=== PATIENT | male | born 1970 | race Native Hawaiian/Other Pacific Islander ===

== ENCOUNTER 2017-03-03 21:22 | Inpatient (IN) | payer SELFPAY ==
[2017-03-03 22:49] LABS: Basophils % (Auto) 0.2 % (0.0-1.8); Eosinophils % (Auto) 1.2 % (0.0-4.3); Hematocrit 46.3 % (35.5-45.6); Hemoglobin 16.3 gm/dl (11.8-15.2); Mean Corpuscular HGB Conc 35 % (32-34); Mean Corpuscular Hemoglobin 30 pg (28-32); Mean Corpuscular Volume 87 fl (84-94); Platelet Count 147 K/mm3 (140-440); Red Blood Count 5.35 M/mm3 (3.65-5.03); Red Cell Distribution Width 13.7 % (13.2-15.2); White Blood Count 7.2 K/mm3 (4.5-11.0)
[2017-03-03 23:08] LABS: Anion Gap 28 mmol/L; Blood Urea Nitrogen 32 mg/dL (9-20); Calcium 9.5 mg/dL (8.4-10.2); Carbon Dioxide 26 mmol/L (22-30); Chloride 79.1 mmol/L (98-107); Glucose 173 mg/dL (75-100); Potassium 3.2 mmol/L (3.6-5.0); Sodium 130 mmol/L (137-145)
[2017-03-04] MEDS ORDERED: DIFLUCAN PO ONE ×2 (02:39)
[2017-03-04] MEDS ORDERED: POTASSIUM CHLORIDE PO ONE (02:40)
[2017-03-04] MEDS ORDERED: VITAMIN B-1 100 MG, FOLVITE 1 MG, INFUVITE 10 ML in NACL 0.9% 1000 ML 1,000 ML IV ONE (02:41)
[2017-03-04] MEDS ORDERED: BENADRYL IV ONE (02:41)
[2017-03-04] MEDS ORDERED: REGLAN IV ONE (02:41)
[2017-03-04 03:09] LABS: Albumin 5.2 g/dL (3.9-5); Albumin/Globulin Ratio 1.2 %; Bilirubin,Direct 0.2 mg/dL (0-0.2); Bilirubin,Indirect 0.8 mg/dL; Magnesium 2.9 mg/dL (1.7-2.3); Total Protein 9.4 g/dL (6.3-8.2)
--- NOTE | 2017-03-04 03:16 | Emergency Department Report ---
ED N/V/D HPI - General Chief complaint: Chest Pain Stated complaint: MOUTH/TONGUE SORE/CANT EAT Time Seen by Provider: 03/04/17 02:25 Source: patient Mode of arrival: Ambulatory Limitations: No Limitations - History of Present Illness Initial comments: 47-year-old male with past medical history not insulin. Diabetes (noncompliant with meds), and daily alcohol/beer use presents to the hospital complaints of pain with swallowing and generalized weakness 1 month. Patient has noticed thrush. After any by mouth intake patient has vomiting and pain with swallowing. Last alcohol intake was 2 beers yesterday. No history of alcohol withdrawal tremors in the past. Patient has generalized intermittent muscle cramps and spasms. Denies isolated and localized abdominal pain. Cramping pain is rated 8/10 in intensity when it occurs. No aggravating or alleviating factors reported. 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 ENT: as per hpi Neck: Denies pain Respiratory: Denies cough wheezing shortness of breath Cardiovascular: Denies chest pain GI: Denies nausea, vomiting : Denies dysuria Musculoskeletal: Denies back pain, joint swelling Skin: Denies rash, lesions, erythema Neurologic: Denies headache, numbness, weakness Psychiatric: Denies suicidal ideation, hallucinations ED Past Medical Hx - Past Medical History Hx Diabetes: Yes - Surgical History Additional Surgical History: unknown - Social History Smoking Status: Current Every Day Smoker Substance Use Type: Alcohol - Medications Home Medications: Home Medications Medication Instructions Recorded Confirmed Last Taken Type No Known Home Medications [No 03/04/17 03/04/17 Unknown History Reported Home Medications] ED Physical Exam - General Limitations: No Limitations - Other Other exam information: General: No limitations, patient is alert in no acute distress Head exam: Atraumatic, normocephalic Eyes exam: Normal appearance ENT: Positive thrush and thrush noted to posterior pharynx Neck exam: Normal inspection, full range of motion, no meningismus nontender Respiratory exam: Clear to auscultation bilateral, no wheezes, rales, crackles Cardiovascular: Normal rate and rhythm, normal heart sounds Abdomen: Soft, nondistended, and nontender, with normal bowel sounds, no rebound, or guarding Extremity: Full range of motion normal inspection no deformity Back: Normal Inspection, full range of motion, no tenderness Neurologic: Alert, oriented x3, cranial nerves intact, no motor or sensory deficit Psychiatric: normal affect, normal mood Skin: Warm, dry, intact ED Course Vital Signs 03/03/17 03/04/17 03/04/17 21:37 02:49 03:03 Temperature 98.4 F Pulse Rate 100 H 81 Respiratory 16 13 16 Rate Blood Pressure 141/90 124/87 O2 Sat by Pulse 96 97 99 Oximetry - Reevaluation(s) Reevaluation #1: 03/04/17 03:56 Banana bag, Diflucan, and by mouth potassium ordered ED Medical Decision Making - Lab Data Result diagrams: 03/03/17 22:08 03/03/17 22:08 Lab Results 03/03/17 03/03/17 03/03/17 Range/Units 22:08 22:08 22:08 WBC 7.2 (4.5-11.0) K/mm3 RBC 5.35 H (3.65-5.03) M/mm3 Hgb 16.3 H (11.8-15.2) gm/dl Hct 46.3 H (35.5-45.6) % MCV 87 (84-94) fl MCH 30 (28-32) pg MCHC 35 H (32-34) % RDW 13.7 (13.2-15.2) % Plt Count 147 (140-440) K/mm3 Lymph % (Auto) 18.6 (13.4-35.0) % [place] % (Auto) 8.8 H (0.0-7.3) % Eos % (Auto) 1.2 (0.0-4.3) % Baso % (Auto) 0.2 (0.0-1.8) % Lymph # 1.3 (1.2-5.4) K/mm3 [place] # 0.6 (0.0-0.8) K/mm3 Eos # 0.1 (0.0-0.4) K/mm3 Baso # 0.0 (0.0-0.1) K/mm3 Seg Neutrophils % 71.2 H (40.0-70.0) % Seg Neutrophils # 5.1 (1.8-7.7) K/mm3 Sodium 130 L (137-145) mmol/L Potassium 3.2 L (3.6-5.0) mmol/L Chloride 79.1 L (98-107) mmol/L Carbon Dioxide 26 (22-30) mmol/L Anion Gap 28 mmol/L BUN 32 H (9-20) mg/dL Creatinine 2.6 H (0.8-1.5) mg/dL Estimated GFR 26 ml/min BUN/Creatinine Ratio 12.30 % Glucose 173 H (75-100) mg/dL Lactic Acid 1.20 (0.7-2.0) mmol/L Calcium 9.5 (8.4-10.2) mg/dL Magnesium (1.7-2.3) mg/dL Total Bilirubin (0.1-1.2) mg/dL Direct Bilirubin (0-0.2) mg/dL Indirect Bilirubin mg/dL AST (5-40) units/L ALT (7-56) units/L Alkaline Phosphatase (35-129) units/L Troponin T < 0.010 (0.00-0.029) ng/mL Total Protein (6.3-8.2) g/dL Albumin (3.9-5) g/dL Albumin/Globulin Ratio % Blood Type Antibody Screen DEL Antibody Screen 03/03/17 03/04/17 03/04/17 Range/Units 22:25 00:53 00:53 WBC (4.5-11.0) K/mm3 RBC (3.65-5.03) M/mm3 Hgb (11.8-15.2) gm/dl Hct (35.5-45.6) % MCV (84-94) fl MCH (28-32) pg MCHC (32-34) % RDW (13.2-15.2) % Plt Count (140-440) K/mm3 Lymph % (Auto) (13.4-35.0) % [place] % (Auto) (0.0-7.3) % Eos % (Auto) (0.0-4.3) % Baso % (Auto) (0.0-1.8) % Lymph # (1.2-5.4) K/mm3 [place] # (0.0-0.8) K/mm3 Eos # (0.0-0.4) K/mm3 Baso # (0.0-0.1) K/mm3 Seg Neutrophils % (40.0-70.0) % Seg Neutrophils # (1.8-7.7) K/mm3 Sodium (137-145) mmol/L Potassium (3.6-5.0) mmol/L Chloride (98-107) mmol/L Carbon Dioxide (22-30) mmol/L Anion Gap mmol/L BUN (9-20) mg/dL Creatinine (0.8-1.5) mg/dL Estimated GFR ml/min BUN/Creatinine Ratio % Glucose (75-100) mg/dL Lactic Acid (0.7-2.0) mmol/L Calcium (8.4-10.2) mg/dL Magnesium 2.90 H (1.7-2.3) mg/dL Total Bilirubin 1.00 (0.1-1.2) mg/dL Direct Bilirubin 0.2 (0-0.2) mg/dL Indirect Bilirubin 0.8 mg/dL AST 41 H (5-40) units/L ALT 38 (7-56) units/L Alkaline Phosphatase 124 (35-129) units/L Troponin T < 0.010 (0.00-0.029) ng/mL Total Protein 9.4 H (6.3-8.2) g/dL Albumin 5.2 H (3.9-5) g/dL Albumin/Globulin Ratio 1.2 % Blood Type A POSITIVE Antibody Screen TNR DEL Antibody Screen Negative - Medical Decision Making Patient need admission to the hospital for hydration, renal consultation, possible EGD to diagnose Liseth esphagitits - Differential Diagnosis esophageal candidiasis, dehydration, electrolyte abnormalities Critical Care Time: No Critical care attestation.: If time is entered above; I have spent that time in minutes in the direct care of this critically ill patient, excluding procedure time. ED Disposition Clinical Impression: Thrush, Odynophagia, Vomiting, Renal insufficiency, Hypokalemia, Hyponatremia Disposition: OP ADMIT IP TO THIS HOSP Is pt being admited?: Yes Condition: Stable Time of Disposition: 03:16 (DR Goetz/hosp)
[2017-03-04] MEDS ORDERED: DULCOLAX PR PRN (04:29)
[2017-03-04] MEDS ORDERED: MILK OF MAGNESIA PO PRN (04:29)
[2017-03-04] MEDS ORDERED: PROTONIX IV SCH (04:29)
[2017-03-04] MEDS ORDERED: TYLENOL PO PRN (04:29)
[2017-03-04] MEDS ORDERED: ZOFRAN IV PRN (04:29)
--- NOTE | 2017-03-04 04:33 | History and Physical Report ---
History of Present Illness Date of examination: 03/04/17 History of present illness: 47-year-old man with a history of alcohol abuse, diabetes, hypertension comes emergency room with complaining nausea vomiting 6 days, unable to eat, vomited coffee-ground emesis. He's been having coffee-ground emesis intermittently over the last 6 months. Also complaining of difficulty swallowing 6 days History is per the , patient is very sleepy, status post Benadryl Review of system is unobtainable Past medical history:alcohol abuse, diabetes, hypertension, right eye blind since PAST SURGICAL HISTORY: None SOCIAL HISTORY: Heavy alcohol use, smokes a pack a day FAMILY HISTORY: Hypertension Medications and Allergies Allergies Allergy/AdvReac Type Severity Reaction Status Date / Time Sulfa (Sulfonamide Allergy Rash Verified 03/04/17 02:45 Antibiotics) Home Medications Medication Instructions Recorded Confirmed Last Taken Type No Known Home Medications [No 03/04/17 03/04/17 Unknown History Reported Home Medications] Active Meds: Active Medications Thiamine HCl 100 mg/ Folic Acid 1 mg/ Multivitamins/Minerals 10 ml/ Sodium Chloride 1,011.2 mls @ 250 mls/hr IV ONCE.ED ONE Stop: 03/04/17 06:43 Last Admin: 03/04/17 03:23 Dose: 250 mls/hr Exam - Physical Exam Narrative exam: Gen. appearance: Patient lying in bed, no apparent distress HEENT: Normocephalic, atraumatic, right eye blind, left pupil equally round and reactive to light, extraocular movement intact, and no sclericterus,. No JVD or thyromegaly or nodule,neck supple, no carotid bruit ,mucous membranes moist, white exudate on tongue Heart: S1, S2, regular rate and rhythm Lungs: Clear to auscultation bilaterally, breathing comfortable Abdomen: Positive bowel sounds, nontender, nondistended, no organomegaly Extremity: No edema, cyanosis, clubbing Skin: No rash, nodules, warm, dry Neuro: difficult to assess, sleepy - Constitutional Vitals: Temp Pulse Resp BP Pulse Ox 98.4 F 77 16 119/78 99 03/03/17 21:37 03/04/17 03:00 03/04/17 03:03 03/04/17 03:00 03/04/17 03:03 Results - Labs CBC & Chem 7: 03/05/17 04:58 03/05/17 04:58 Labs: Abnormal lab results 03/03/17 03/03/17 03/04/17 Range/Units 22:08 22:08 00:53 RBC 5.35 H (3.65-5.03) M/mm3 Hgb 16.3 H (11.8-15.2) gm/dl Hct 46.3 H (35.5-45.6) % MCHC 35 H (32-34) % [place] % (Auto) 8.8 H (0.0-7.3) % Seg Neutrophils % 71.2 H (40.0-70.0) % Sodium 130 L (137-145) mmol/L Potassium 3.2 L (3.6-5.0) mmol/L Chloride 79.1 L (98-107) mmol/L BUN 32 H (9-20) mg/dL Creatinine 2.6 H (0.8-1.5) mg/dL Glucose 173 H (75-100) mg/dL Magnesium 2.90 H (1.7-2.3) mg/dL AST 41 H (5-40) units/L Total Protein 9.4 H (6.3-8.2) g/dL Albumin 5.2 H (3.9-5) g/dL Assessment and Plan Assessment GI bleed/coffee-ground emesis Acute renal failure Oral candidiasis Hypertension Diabetes2 Alcohol abuse Plan Start IV fluid, protonix, consult GI, monitor hemoglobin Obtain ultrasound of the kidneys start IV fluconazole, will need hiv test when he's more awake Fingersticks initiate insulin sliding scale Start CIWA protocol with IV Ativan Start DVT prophylaxis with SCD
[2017-03-04] MEDS ORDERED: ATIVAN IV PRN ×2 (04:38)
--- NOTE | 2017-03-04 05:58 | Ultrasound Report ---
FINAL REPORT PROCEDURE: US RENAL BILAT TECHNIQUE: Real-time sonography in multiple planes of the kidneys, ureters and urinary bladder was performed with image documentation. CPT 64521 HISTORY: arf COMPARISON: No prior studies are available for comparison. FINDINGS: RIGHT kidney: Normal echotexture. No focal renal mass, calculus, or hydronephrosis. Length: 11.1 cm. LEFT kidney: No hydronephrosis. The inferior pole is not well visualized on this study.. Length: 11cm. Bladder: Normal. IMPRESSION: There is no evidence of hydronephrosis. No renal masses..
[2017-03-04] MEDS: NACL 0.9% 1000 ML 1,000 ML IV SCH ×3 (07:52→21:53)
--- NOTE | 2017-03-04 09:20 | Gastroenterology Consultation ---
History of Present Illness - Reason for Consult Consult date: 03/04/17 Coffee Ground Emesis Requesting physician: KINGS AMOS - History of Present Illness The patient is a 47 yo male admitted with N/V/coffee ground emesis. His current hct is 46, but he is clinically quite dehydrated. He has a known hx of polysubstance abuse (EtOH, cocaine, smoking) and was binge drinking as recently as 1 day [employer]. He was admitted for similar sx about 3 weeks ago, but no endoscopy was done. Today, he ate a soft breakfast, and had nausea, but no vomiting. He has not had melena. He does take motrin almost every day, and occasional TUMS. He has no hx of PUD, and there is no family hx of PUD or GI cancer. He has never had upper or lower endoscopy. He denies prior abdominal surgery or cardiopulmonary disease. In the ER, he was complaining about recent onset of dysphagia, but today he swallowed his entire meal without problem (but it was soft - eggs/grits). Past History Past Medical History: other (substance abuse, blind R eye) Past Surgical History: Other (R eye) Social history: smoking, alcohol abuse, other (cocaine) Family history: no significant family history. denies: cancer Medications and Allergies Allergies Allergy/AdvReac Type Severity Reaction Status Date / Time Sulfa (Sulfonamide Allergy Rash Verified 03/04/17 02:45 Antibiotics) Home Medications Medication Instructions Recorded Confirmed Last Taken Type No Known Home Medications [No 03/04/17 03/04/17 Unknown History Reported Home Medications] Active Meds: Active Medications Acetaminophen (Tylenol) 650 mg PO Q4H PRN PRN Reason: Pain MILD(1-3)/Fever >100.5/RODRIGUEZ Bisacodyl (Dulcolax) 10 mg NH QDAY PRN PRN Reason: Constipation unrelieved by MOM Fluconazole (Diflucan/Ns 100 Mg/50 Ml) 100 mg in 50 mls @ 50 mls/hr IV Q24HR HANSEL Sodium Chloride (Nacl 0.9% 1000 Ml) 1,000 mls @ 150 mls/hr IV DIRECT HANSEL Last Admin: 03/04/17 07:52 Dose: 150 mls/hr Lorazepam (Ativan) 2 mg IV Q1HR PRN PRN Reason: CIWA-Ar 8-15 Lorazepam (Ativan) 4 mg IV Q1HR PRN PRN Reason: CIWA-Ar 16-25 Magnesium Hydroxide (Milk Of Magnesia) 30 ml PO Q4H PRN PRN Reason: Constipation Ondansetron HCl (Zofran) 4 mg IV Q8H PRN PRN Reason: N/V unrelieved by Reglan Pantoprazole Sodium (Protonix) 40 mg IV DAILY HANSEL Last Admin: 03/04/17 05:18 Dose: 40 mg Review of Systems - Review of Systems All systems: negative (as noted in the HPI) Exam - Constitutional Vital Signs: Temp Pulse Resp BP Pulse Ox 98.5 F 85 20 107/74 97 03/04/17 07:50 03/04/17 08:26 03/04/17 07:50 03/04/17 07:50 03/04/17 07:50 General appearance: no acute distress - EENT Eyes: other (Blind R eye) ENT: hearing intact, poor dentition, no thrush - Neck Neck: supple, normal ROM - Respiratory Respiratory effort: normal Respiratory: bilateral: CTA - Cardiovascular Rhythm: regular Heart Sounds: Present: S1 & S2 Extremities: no ischemia, No edema - Gastrointestinal General gastrointestinal: Present: soft, non-tender, non-distended - Integumentary Integumentary: Present: clear, warm, dry - Neurologic Neurological: alert and oriented x3 - Psychiatric Psychiatric: appropriate mood/affect - Labs CBC & Chem 7: 03/03/17 22:08 03/03/17 22:08 Lab Results: Laboratory Results - last 24 hr 03/04/17 03/04/17 07:55 Unknown POC Glucose 147 H Troponin T < 0.010 Assessment and Plan - Patient Problems (1) Hematemesis Current Visit: Yes Status: Acute Qualifiers: Nausea presence: N Plan to address problem: - Likely related to esophagitis from N/V from binge drinking, but will get endoscopy to further evaluate. - Continue current protonix therapy but PO not IV. - Monitor for EtOH withdrawal. - Patient ate today, so will plan EGD tomorrow. (2) Dysphagia Current Visit: Yes Status: Acute Qualifiers: Dysphagia type: D (3) Polysubstance abuse Current Visit: Yes Status: Acute (4) DEVANG (acute kidney injury) Current Visit: Yes Status: Acute
--- NOTE | 2017-03-04 13:04 | Progress Note ---
Assessment and Plan Assessment and plan: Patient is a 47-year-old man who speaks [place]ic with a history of right eye enucleation since , alcohol abuse, tobacco dependency, cocaine abuse, type 2 diabetes mellitus and hypertension who presents with nausea and vomiting coffee-ground emesis. Hemoglobin was 16.3. Creatinine was 2.6, last creatinine 02/12/2017 was 0.6. He does take Motrin daily. He's also has been drinking been drinking alcohol. Last alcoholic drink was at 1 day prior to arrival. -ARF, atn/mutlfactorial, poa: renal u/s reviewed, consult nephro, ivf nss at 150ml/hr going. -Intractable n/v: zofran iv -UGIB: egd, stop motrin and treat with ppi, GI is following -Dvt prophylaxis: scd only due to gib -ETOH abuse: [facility] protocol -Tobacco: counseling done. -hypokalemia: replace and recheck am History Interval history: Patient seen and examined. Follow up on current diagnosis/nausea vomiting. Overnight uneventful. No cp, sob, or severe headaches. Imaging, old records, testing, labs, nursing notes reviewed. He tolerated breakfast without vomiting but he does have nausea and epigastric abdominal pain. at bedside Hospitalist Physical - Physical exam Narrative exam: GEN: WDWN, NAD, AWAKE, ALERT, ORIENTATED x 3 HEENT: NCAT, right eye enucleation, EOMI, OP whtish plaque on tongue NECK: SUPPLE, NO THYROMEGALY, NO JVD, NO LAD CVS: RRR, NORMAL S1S2 LUNGS/CHEST: CTA B, NORMAL CHEST EXPANSION B, GOOD AIR ENTRY B ABD: SOFT, epigastric tenderness without distention GBS, NO REBOUND OR GUARDING EXT/SKIN: NO SIGNIFICANT EDEMA OR RASH MSK: FROM X 4 EXTREMITIES NEURO: CN 2-12 GROSSLY INTACT, NO FOCAL DEFICITS PSY: CALM - Constitutional Vitals: Temp Pulse Resp BP Pulse Ox 98.5 F 85 20 107/74 98 03/04/17 07:50 03/04/17 08:26 03/04/17 07:50 03/04/17 07:50 03/04/17 09:00 Results - Labs CBC & Chem 7: 03/03/17 22:08 03/03/17 22:08 Labs: Laboratory Last Values WBC 7.2 K/mm3 (4.5-11.0) 03/03/17 22:08 RBC 5.35 M/mm3 (3.65-5.03) H 03/03/17 22:08 Hgb 16.3 gm/dl (11.8-15.2) H 03/03/17 22:08 Hct 46.3 % (35.5-45.6) H 03/03/17 22:08 MCV 87 fl (84-94) 03/03/17 22:08 MCH 30 pg (28-32) 03/03/17 22:08 MCHC 35 % (32-34) H 03/03/17 22:08 RDW 13.7 % (13.2-15.2) 03/03/17 22:08 Plt Count 147 K/mm3 (140-440) 03/03/17 22:08 Lymph % (Auto) 18.6 % (13.4-35.0) 03/03/17 22:08 [place] % (Auto) 8.8 % (0.0-7.3) H 03/03/17 22:08 Eos % (Auto) 1.2 % (0.0-4.3) 03/03/17 22:08 Baso % (Auto) 0.2 % (0.0-1.8) 03/03/17 22:08 Lymph # 1.3 K/mm3 (1.2-5.4) 03/03/17 22:08 [place] # 0.6 K/mm3 (0.0-0.8) 03/03/17 22:08 Eos # 0.1 K/mm3 (0.0-0.4) 03/03/17 22:08 Baso # 0.0 K/mm3 (0.0-0.1) 03/03/17 22:08 Seg Neutrophils % 71.2 % (40.0-70.0) H 03/03/17 22:08 Seg Neutrophils # 5.1 K/mm3 (1.8-7.7) 03/03/17 22:08 Sodium 130 mmol/L (137-145) L 03/03/17 22:08 Potassium 3.2 mmol/L (3.6-5.0) L 03/03/17 22:08 Chloride 79.1 mmol/L (98-107) L 03/03/17 22:08 Carbon Dioxide 26 mmol/L (22-30) 03/03/17 22:08 Anion Gap 28 mmol/L 03/03/17 22:08 BUN 32 mg/dL (9-20) H 03/03/17 22:08 Creatinine 2.6 mg/dL (0.8-1.5) H 03/03/17 22:08 Estimated GFR 26 ml/min 03/03/17 22:08 BUN/Creatinine Ratio 12.30 % 03/03/17 22:08 Glucose 173 mg/dL (75-100) H 03/03/17 22:08 POC Glucose 177 (70-105) H 03/04/17 12:13 Lactic Acid 1.20 mmol/L (0.7-2.0) 03/03/17 22:08 Calcium 9.5 mg/dL (8.4-10.2) 03/03/17 22:08 Magnesium 2.90 mg/dL (1.7-2.3) H 03/04/17 00:53 Total Bilirubin 1.00 mg/dL (0.1-1.2) 03/04/17 00:53 Direct Bilirubin 0.2 mg/dL (0-0.2) 03/04/17 00:53 Indirect Bilirubin 0.8 mg/dL 03/04/17 00:53 AST 41 units/L (5-40) H 03/04/17 00:53 ALT 38 units/L (7-56) 03/04/17 00:53 Alkaline Phosphatase 124 units/L (35-129) 03/04/17 00:53 Troponin T < 0.010 ng/mL (0.00-0.029) 03/04/17 Unknown Total Protein 9.4 g/dL (6.3-8.2) H 03/04/17 00:53 Albumin 5.2 g/dL (3.9-5) H 03/04/17 00:53 Albumin/Globulin Ratio 1.2 % 03/04/17 00:53 Blood Type A POSITIVE 03/03/17 22:25 Antibody Screen TNR 03/03/17 22:25 DEL Antibody Screen Negative 03/03/17 22:25
[2017-03-04] MEDS: PROTONIX PO SCH (14:05)
[2017-03-04] MEDS: THERAGRAN-M Tab PO SCH (14:05)
--- NOTE | 2017-03-04 15:57 | Consultation ---
History of Present Illness - Reason for Consult Consult date: 03/04/17 acute renal failure Requesting physician: BARON MARTIN - History of Present Illness This is a 47 year old male with PMH of diabetes mellitus type 2 non-insulin dependent, blind in right eye, alcohol abuse, polysubstance abuse, and hypertension who presented to [facility] yesterday with complaints of nausea, vomiting coffee ground emesis, generalized muscle aches throughout his entire body, muscle cramps, and decreased urination. Patient reports worsening vomiting for the past 6 days along with decreased oral intake. Patient reports decreased urination and some days he would urinate small amount. Patient reports occasional dysuria, states sometimes urine is dark yellow, family at bedside states sometimes his urine looks like he has blood in it. Patient states his last drink of beer was 2 days ago, 1 day prior to admission. Gastroenterology consulted, planning on EGD tomorrow. We were consulted to evaluate this patient who has acute renal failure and nephrology consultation requested. Patient denies any history of known kidney problems. Patient states he takes motrin at least once a day, sometimes twice a day. Patient reports over 16 year history of uncontrolled diabetes mellitus type 2 and hypertension. Patient denies taking any medications for diabetes mellitus and hypertension. Review of labs from February of 2016, SCr level was 0.6. Past History Past Medical History: diabetes, hypertension, other (substance abuse, blind R eye) Past Surgical History: Other (R eye) Social history: smoking, alcohol abuse, other (cocaine) Family history: no significant family history. denies: cancer Medications and Allergies Allergies Allergy/AdvReac Type Severity Reaction Status Date / Time Sulfa (Sulfonamide Allergy Rash Verified 03/04/17 02:45 Antibiotics) Home Medications Medication Instructions Recorded Confirmed Last Taken Type No Known Home Medications [No 03/04/17 03/04/17 Unknown History Reported Home Medications] Active Meds: Active Medications Acetaminophen (Tylenol) 650 mg PO Q4H PRN PRN Reason: Pain MILD(1-3)/Fever >100.5/RODRIGUEZ Bisacodyl (Dulcolax) 10 mg MN QDAY PRN PRN Reason: Constipation unrelieved by MOM Fluconazole (Diflucan/Ns 100 Mg/50 Ml) 100 mg in 50 mls @ 50 mls/hr IV Q24HR HANSEL Sodium Chloride (Nacl 0.9% 1000 Ml) 1,000 mls @ 150 mls/hr IV DIRECT [facility] Last Admin: 03/04/17 14:04 Dose: 150 mls/hr Lorazepam (Ativan) 2 mg IV Q1HR PRN PRN Reason: CIWA-Ar 8-15 Lorazepam (Ativan) 4 mg IV Q1HR PRN PRN Reason: CIWA-Ar 16-25 Magnesium Hydroxide (Milk Of Magnesia) 30 ml PO Q4H PRN PRN Reason: Constipation Multivitamins/Minerals (Theragran-M Tab) 1 each PO QDAY [facility] Last Admin: 03/04/17 14:05 Dose: 1 each Ondansetron HCl (Zofran) 4 mg IV Q8H PRN PRN Reason: N/V unrelieved by Reglan Pantoprazole Sodium (Protonix) 40 mg PO QDAY [facility] Last Admin: 03/04/17 14:05 Dose: 40 mg Review of Systems Constitutional: fatigue, weakness, poor appetite, no fever Ears, nose, mouth and throat: sore throat, headache, no epistaxis Cardiovascular: high blood pressure, no chest pain, no shortness of breath, no dyspnea on exertion, no leg edema Respiratory: no shortness of breath, no dyspnea on exertion Gastrointestinal: nausea, vomiting, hematemesis, coffee ground emesis, no abdominal pain, no diarrhea, no constipation Genitourinary Male: dysuria, other (decreased urination), no hematuria Musculoskeletal: muscle weakness, muscle cramps, myalgias Integumentary: no rash, no wounds, no foot/leg ulcers Neurological: headaches, no numbness, no tingling, no seizures, no change in speech Psychiatric: no anxiety, no depression Endocrine: high blood sugars, fatigue Exam - Vital Signs Vital signs: Vital Signs Temp Pulse Resp BP Pulse Ox 98.4 F 100 H 16 141/90 96 03/03/17 21:37 03/03/17 21:37 03/03/17 21:37 03/03/17 21:37 03/03/17 21:37 - General Appearance General appearance: well-developed (no acute distress) EENT: ATNC Neck: Present: neck supple Respiratory: Clear to Ascultation Heart: regular, S1S2 Gastrointestinal: Present: normoactive bowel sounds. Absent: tenderness, distended Integumentary: warm and dry Neurologic: alert and oriented x3 Musculoskeletal: Present: other (no edema to both lower extremities) Psychiatric: mood/affect appropriate, cooperative Results - Lab Results 03/03/17 22:08 03/03/17 22:08 Most recent lab results Calcium 9.5 mg/dL (8.4-10.2) 03/03/17 22:08 Magnesium 2.90 mg/dL (1.7-2.3) H 03/04/17 00:53 Assessment and Plan - Patient Problems (1) Hematemesis Current Visit: Yes Status: Acute Qualifiers: Nausea presence: N Plan to address problem: Gastroenterology on board, on protonix, scheduled for EGD procedure tomorrow (2) Acute renal failure Current Visit: Yes Status: Acute Qualifiers: Acute renal failure type: A Plan to address problem: Labs pending today Labs reviewed from yesterday showed SCr level of 2.6. Exact SCr baseline unknown , but review of labs from February of 2016 showed SCr level of 0.6. Acute renal failure - exact etiology unclear, possibly multi-factorial secondary to prerenal etiology/ ATN worsened in setting of vomiting, decreased oral intake, cannot rule out AIN from NSAIDs use, questionable underlying chronic kidney disease secondary to Diabetic Nephropathy and Hypertensive Nephrosclerosis, no evidence of obstruction on renal ultrasound Started on 0.9% NS infusion at 150 ml/hr Renal ultrasound showed no hydronephrosis Monitor labs daily and replete electrolytes as needed Obtain urine lytes Evaluate urine for proteinuria Obtain urine eosinophils Renally dose medications Obtain daily weight Strict intake and output Wright Catheter: No Renal plan discussed with Dr Mendez Continue supportive therapy (3) Thrush Current Visit: Yes Status: Acute Plan to address problem: Started on Diflucan (4) Alcohol abuse Current Visit: Yes Status: Acute Plan to address problem: On CIWA protocol, ativan PRN, and thiamine - as per primary team management
[2017-03-04 17:18] LABS: Hemoglobin 13.9 gm/dl (11.8-15.2); Mean Corpuscular HGB Conc 34 % (32-34); Mean Corpuscular Hemoglobin 30 pg (28-32); Mean Corpuscular Volume 89 fl (84-94); Platelet Count 115 K/mm3 (140-440); Red Blood Count 4.62 M/mm3 (3.65-5.03); Red Cell Distribution Width 13.3 % (13.2-15.2); White Blood Count 4.1 K/mm3 (4.5-11.0)
[2017-03-04 17:28] LABS: Anion Gap 20 mmol/L; BUN/Creatinine Ratio 21.66; Blood Urea Nitrogen 26 mg/dL (9-20); Calcium 8.3 mg/dL (8.4-10.2); Carbon Dioxide 28 mmol/L (22-30); Chloride 92.4 mmol/L (98-107); Glucose 175 mg/dL (75-100); Potassium 3.1 mmol/L (3.6-5.0); Sodium 137 mmol/L (137-145)
[2017-03-05 06:08] LABS: Basophils % (Auto) 0.1 % (0.0-1.8); Eosinophils % (Auto) 2.3 % (0.0-4.3); Hematocrit 36.4 % (35.5-45.6); Hemoglobin 12.5 gm/dl (11.8-15.2); Mean Corpuscular HGB Conc 34 % (32-34); Mean Corpuscular Hemoglobin 30 pg (28-32); Mean Corpuscular Volume 88 fl (84-94); Red Blood Count 4.14 M/mm3 (3.65-5.03); Red Cell Distribution Width 13.2 % (13.2-15.2); White Blood Count 3.4 K/mm3 (4.5-11.0)
[2017-03-05 06:10] LABS: Platelet Count 88 K/mm3 (140-440)
[2017-03-05 06:25] LABS: Alanine Aminotransferase 35 units/L (7-56); Albumin 3.4 g/dL (3.9-5); Albumin/Globulin Ratio 1.1 %; Alkaline Phosphatase 74 units/L (35-129); Anion Gap 15 mmol/L; BUN/Creatinine Ratio 26.66; Blood Urea Nitrogen 16 mg/dL (9-20); Calcium 7.8 mg/dL (8.4-10.2); Carbon Dioxide 27 mmol/L (22-30); Chloride 101.2 mmol/L (98-107); Glucose 144 mg/dL (75-100); Potassium 3.1 mmol/L (3.6-5.0); Sodium 140 mmol/L (137-145); Total Protein 6.6 g/dL (6.3-8.2)
[2017-03-05] MEDS: NACL 0.9% 1000 ML 1,000 ML IV SCH (06:34)
[2017-03-05 07:30] LABS: Bacteria,Urine 2+ /HPF (Negative); Bilirubin,Urine NEG (Negative); Blood,Urine NEG (Negative); Ketones,Urine NEG (Negative); Leukocyte Esterase,Urine MOD (Negative); Nitrite,Urine NEG (Negative); Protein,Urine <15 mg/dL mg/dL (Negative); RBC,Urine < 1.0 /HPF (0.0-6.0)
[2017-03-05 07:37] LABS: Sodium, Urine 16 mEq/L
[2017-03-05] MEDS: DIFLUCAN/NS 100 MG/50 ML 100 MG/50 ML BAG IV SCH (09:28)
[2017-03-05] MEDS: THERAGRAN-M Tab PO SCH (09:28)
[2017-03-05] MEDS: PROTONIX PO SCH (09:28)
--- NOTE | 2017-03-05 10:37 | Progress Note ---
Assessment and Plan (1) Hematemesis Current Visit: Yes Status: Acute Qualifiers: Nausea presence: N Plan to address problem Gastroenterology on board, on PPI (2) Acute renal failure Current Visit: Yes Status: Acute Qualifiers: Acute renal failure type: A Plan to address problem: resolved Renal ultrasound showed no hydronephrosis Monitor labs daily and replete electrolytes as needed Obtain urine lytes Renally dose medications Obtain daily weight Strict intake and output Wright Catheter: No will sign off, please reconsult as needed (3) Thrush Current Visit: Yes Status: Acute Plan to address problem: Started on Diflucan (4) Alcohol abuse Current Visit: Yes Status: Acute Plan to address problem: On CIWA protocol, ativan PRN, and thiamine - as per primary team management Subjective Date of service: 03/05/17 Principal diagnosis: acute renal failure Interval history: feels better this morning Objective - Vital Signs Vital signs: Vital Signs - 12hr 03/05/17 03/05/17 03/05/17 01:28 04:10 04:20 Temperature 98.5 F 98.3 F 98.3 F Pulse Rate Pulse Rate [ 76 68 68 Right] Respiratory 20 18 18 Rate Blood Pressure 120/74 121/70 121/70 [Right Arm] O2 Sat by Pulse 97 97 97 Oximetry 03/05/17 03/05/17 03/05/17 06:08 07:59 08:13 Temperature 98.1 F Pulse Rate 60 62 Pulse Rate [ 72 Right] Respiratory 20 Rate Blood Pressure 128/81 [Right Arm] O2 Sat by Pulse 99 Oximetry 03/05/17 09:51 Temperature Pulse Rate Pulse Rate [ 72 Right] Respiratory 20 Rate Blood Pressure [Right Arm] O2 Sat by Pulse 99 Oximetry - General Appearance General appearance: well-developed, well-nourished EENT: ATNC, PERRL Neck: no JVD, no carotid bruit Respiratory: Present: Clear to Ascultation. Absent: Rales, Ronchi Cardiology: regular, S1S2 Gastrointestinal: normoactive bowel sounds Integumentary: no rash, warm and dry Neurologic: no focal deficit, no asterixis, alert and oriented x3 Musculoskeletal: deferred Psychiatric: mood/affect appropriate, cooperative - Lab 03/05/17 04:58 03/05/17 04:58 Most recent lab results Calcium 7.8 mg/dL (8.4-10.2) L 03/05/17 04:58 Phosphorus 2.10 mg/dL (2.5-4.5) L 03/04/17 16:35 Magnesium 2.70 mg/dL (1.7-2.3) H 03/04/17 16:35 Urine Creatinine 193.4 mg/dL (0.1-20.0) H 03/05/17 Unknown Urine Sodium 16 mEq/L 03/05/17 Unknown Urine Total Protein 34 mg/dL (5-11.8) H 03/05/17 Unknown
--- NOTE | 2017-03-05 11:51 | Progress Note ---
Assessment and Plan Assessment and plan: Patient is a 47-year-old man who speaks [place] with a history of right eye enucleation since , alcohol abuse, tobacco dependency, cocaine abuse, type 2 diabetes mellitus and hypertension who presents with nausea and vomiting coffee-ground emesis. Hemoglobin was 16.3. Creatinine was 2.6, last creatinine 02/12/2017 was 0.6. He does take Motrin daily. He's also has been drinking been drinking alcohol. Last alcoholic drink was at 1 day prior to arrival. -ARF, atn/mutlfactorial, poa: renal u/s reviewed, consult nephro, ivf nss at 150ml/hr going. Resolved now, reduced rate of normal saline -Intractable n/v: zofran iv -UGIB: egd, stop motrin and treat with ppi, GI is following -Dvt prophylaxis: scd only due to gib -ETOH abuse: [facility] protocol -Tobacco dependency: counseling to stop done. -hypokalemia: replace and recheck am -Dysphagia with oral candidiasis on IV Diflucan: EGD pending Chemistry last not crossing over into [employer] electronic medical records; therefore, I lab for verbal report of called to chemistry sodium 140, potassium of 3.1. Will replace potassium and recheck in a.m. EGD today and possibly discharge tomorrow History Interval history: Patient seen and examined. Follow up on current diagnosis/nausea vomiting has resolved. Overnight uneventful. No cp, sob, or severe headaches. Imaging, old records, testing, labs, nursing notes reviewed. He tolerated breakfast without vomiting but he does have nausea and epigastric abdominal pain. at bedside Hospitalist Physical - Physical exam Narrative exam: GEN: WDWN, NAD, AWAKE, ALERT, ORIENTATED x 3 HEENT: NCAT, right eye enucleation, EOMI, OP whtish plaque on tongue NECK: SUPPLE, NO THYROMEGALY, NO JVD, NO LAD CVS: RRR, NORMAL S1S2 LUNGS/CHEST: CTA B, NORMAL CHEST EXPANSION B, GOOD AIR ENTRY B ABD: SOFT, epigastric tenderness without distention GBS, NO REBOUND OR GUARDING EXT/SKIN: NO SIGNIFICANT EDEMA OR RASH MSK: FROM X 4 EXTREMITIES NEURO: CN 2-12 GROSSLY INTACT, NO FOCAL DEFICITS PSY: CALM - Constitutional Vitals: Temp Pulse Resp BP Pulse Ox 98.1 F 72 20 128/81 97 07/24/17 08:13 03/05/17 09:51 03/05/17 09:51 03/05/17 08:13 03/05/17 10:57 Results - Labs CBC & Chem 7: 03/05/17 04:58 03/05/17 04:58 Labs: Laboratory Last Values WBC 3.4 K/mm3 (4.5-11.0) L 03/05/17 04:58 RBC 4.14 M/mm3 (3.65-5.03) 03/05/17 04:58 Hgb 12.5 gm/dl (11.8-15.2) 03/05/17 04:58 Hct 36.4 % (35.5-45.6) 03/05/17 04:58 MCV 88 fl (84-94) 03/05/17 04:58 MCH 30 pg (28-32) 03/05/17 04:58 MCHC 34 % (32-34) 03/05/17 04:58 RDW 13.2 % (13.2-15.2) 03/05/17 04:58 Plt Count 88 K/mm3 (140-440) L 03/05/17 04:58 Lymph % (Auto) 29.4 % (13.4-35.0) 03/05/17 04:58 Clark % (Auto) 10.6 % (0.0-7.3) H 03/05/17 04:58 Eos % (Auto) 2.3 % (0.0-4.3) 03/05/17 04:58 Baso % (Auto) 0.1 % (0.0-1.8) 03/05/17 04:58 Lymph # 1.0 K/mm3 (1.2-5.4) L 03/05/17 04:58 Clark # 0.4 K/mm3 (0.0-0.8) 03/05/17 04:58 Eos # 0.1 K/mm3 (0.0-0.4) 03/05/17 04:58 Baso # 0.0 K/mm3 (0.0-0.1) 03/05/17 04:58 Seg Neutrophils % 57.6 % (40.0-70.0) 03/05/17 04:58 Seg Neutrophils # 1.9 K/mm3 (1.8-7.7) 03/05/17 04:58 Sodium 137 mmol/L (137-145) D 03/04/17 16:35 Potassium 3.2 mmol/L (3.6-5.0) L 03/03/17 22:08 Chloride 79.1 mmol/L (98-107) L 03/03/17 22:08 Carbon Dioxide 27 mmol/L (22-30) 03/05/17 04:58 Anion Gap 28 mmol/L 03/03/17 22:08 BUN 16 mg/dL (9-20) 03/05/17 04:58 Creatinine 0.6 mg/dL (0.8-1.5) L 03/05/17 04:58 Estimated GFR > 60 ml/min 03/05/17 04:58 BUN/Creatinine Ratio 26.66 % 03/05/17 04:58 Glucose 144 mg/dL (75-100) H 03/05/17 04:58 POC Glucose 131 (70-105) H 03/05/17 08:08 Lactic Acid 1.20 mmol/L (0.7-2.0) 03/03/17 22:08 Calcium 7.8 mg/dL (8.4-10.2) L 03/05/17 04:58 Phosphorus 2.10 mg/dL (2.5-4.5) L 03/04/17 16:35 Magnesium 2.70 mg/dL (1.7-2.3) H 03/04/17 16:35 Total Bilirubin 0.30 mg/dL (0.1-1.2) 03/05/17 04:58 Direct Bilirubin 0.2 mg/dL (0-0.2) 03/04/17 00:53 Indirect Bilirubin 0.8 mg/dL 03/04/17 00:53 AST 39 units/L (5-40) 03/05/17 04:58 ALT 35 units/L (7-56) 03/05/17 04:58 Alkaline Phosphatase 74 units/L (35-129) 03/05/17 04:58 Troponin T < 0.010 ng/mL (0.00-0.029) 03/04/17 Unknown Total Protein 6.6 g/dL (6.3-8.2) D 03/05/17 04:58 Albumin 3.4 g/dL (3.9-5) L 03/05/17 04:58 Albumin/Globulin Ratio 1.1 % 03/05/17 04:58 PTH Intact 50.88 pg/mL (15-65) 03/04/17 16:35 Urine Color Yellow (Yellow) 03/05/17 Unknown Urine Turbidity Clear (Clear) 03/05/17 Unknown Urine pH 6.0 (5.0-7.0) 03/05/17 Unknown Ur Specific [place] 1.019 (1.003-1.030) 03/05/17 Unknown Urine Protein <15 mg/dl mg/dL (Negative) 03/05/17 Unknown Urine Glucose (UA) 150 mg/dL (Negative) 03/05/17 Unknown Urine Ketones Neg mg/dL (Negative) 03/05/17 Unknown Urine Blood Neg (Negative) 03/05/17 Unknown Urine Nitrite Neg (Negative) 03/05/17 Unknown Urine Bilirubin Neg (Negative) 03/05/17 Unknown Urine Urobilinogen 2.0 mg/dL (<2.0) 03/05/17 Unknown Ur Leukocyte Esterase Mod (Negative) 03/05/17 Unknown Urine WBC (Auto) 25.0 /HPF (0.0-6.0) H 03/05/17 Unknown Urine RBC (Auto) < 1.0 /HPF (0.0-6.0) 03/05/17 Unknown U Epithel Cells (Auto) < 1.0 /HPF (0-13.0) 03/05/17 Unknown Urine Bacteria (Auto) 2+ /HPF (Negative) 03/05/17 Unknown Urine Creatinine 193.4 mg/dL (0.1-20.0) H 03/05/17 Unknown Urine Microalbumin < 1.2 mg/dL (0.1-34.0) 03/05/17 Unknown Microalb/Creat Ratio Not Reportable 03/05/17 Unknown Protein/Creatinin Ratio 0.18 03/05/17 Unknown Urine Sodium 16 mEq/L 03/05/17 Unknown Urine Total Protein 34 mg/dL (5-11.8) H 03/05/17 Unknown Blood Type A POSITIVE 03/03/17 22:25 Antibody Screen TNR 03/03/17 22:25 DEL Antibody Screen Negative 03/03/17 22:25
--- NOTE | 2017-03-05 12:01 | Admit Criteria Form ---
Admission Criteria Documentation: ESOPHAGEAL DISEASE Clinical Indications for Admission to Inpatient Care (Place 'X' for any and all applicable criteria): Admission is indicated for ANY ONE of the following(1)(2)(3): [ ]I. Suspected esophageal perforation or fistula(6)(7) [ ]II. Complete esophageal obstruction [ ]III. Esophagitis with secondary mediastinitis [ ]IV. Severe acute radiation esophagitis [X]V. Inpatient admission required rather than observation care because of ANY ONE of the following: [ ]a) Vomiting that is severe or persistent [ ]b) Volume depletion that is severe or persistent [ ]c) Severe electrolyte abnormalities requiring inpatient care [ ]d) Severe pain requiring acute inpatient management [ ]e) Caustic ingestion related injury that requires inpatient care(8) [ ]f) High fever or infection requiring in pt. admission for ANY ONE of the following (9): [ ]1) Appropriate out pt. or observation care antimicrobial treatment not effective [ ]2) Documented bacteremia [ ]3) Temperature greater than 40.5 C (104.9 F ) (oral) [ ]4) Temperature over 103.1 F (39.5 degreesC)( oral) or under 96.8 F(36 degrees C, rectal) not responding to all emergency department treatment [ ]g) IV fluid to replace significant ongoing losses ( greater than 3 L/m2 per day) [ ]h) Percutaneous or open drainage (eg, abscess, biliary tract) procedures [ ]i) Parenteral nutrition regimen that must be implemented on inpatient basis [ ]j) Immediate inpatient surgery [X]k) Other condition, treatment or monitoring requiring inpatient admission Extended stay beyond goal length of stay may be needed for(1)(2)(3)(28): [ ]a) Continued severe esophageal dysfunction or obstruction [ ]b) Hemorrhagic esophagitis [ ]c) Severe caustic injury [ ]d) Tracheoesophageal fistula [ ]e) Esophageal perforation [ ]f) Mediastinitis The original [employer] content created by [employer] has been revised. The portions of the content which have been revised are identified through the use of italic text or in bold, and [facility] [employer] has neither reviewed nor approved the modified material. All other unmodified content is copyright [employer]. Please see references footnoted in the original [employer] edition 2016 Admission Criteria Met: Yes
--- NOTE | 2017-03-05 15:59 | Event Note ---
Date: 03/05/17 The patient ate breakfast today per nursing despite being NPO. I will let him eat regular diet today (since no further hematemesis since admit) and plan for an EGD tomorrow. I have re-written NPO after midnight orders for the patient for tonight.
[2017-03-06] MEDS: NACL 0.9% 1000 ML 1,000 ML IV SCH ×2 (09:33→10:53)
[2017-03-06 10:26] LABS: Anion Gap 13 mmol/L; Blood Urea Nitrogen 8 mg/dL (9-20); Calcium 7.9 mg/dL (8.4-10.2); Carbon Dioxide 26 mmol/L (22-30); Chloride 104.9 mmol/L (98-107); Glucose 132 mg/dL (75-100); Potassium 3.5 mmol/L (3.6-5.0); Sodium 140 mmol/L (137-145)
--- NOTE | 2017-03-06 11:28 | Anesthesia Day of Surgery ---
Anesthesia Day of Surgery - Day of Surgery Patient Examined: Yes Patient H&P Reviewed: Yes Patient is NPO: Yes
--- NOTE | 2017-03-06 11:28 | Anesthesia Consultation ---
Anesthesia Consult and Med Hx Date of service: 03/06/17 - Airway Anesthetic Teeth Evaluation: Good ROM Head & Neck: Adequate Mental/Hyoid Distance: Adequate Mallampati Class: Class II Intubation Access Assessment: Probably Good - Pulmonary Exam CTA: Yes - Cardiac Exam Cardiac Exam: RRR - Pre-Operative Health Status ASA Pre-Surgery Classification: ASA3 Proposed Anesthetic Plan: MAC - Pulmonary Hx Smoking: Yes Hx Asthma: No COPD: No Hx Pneumonia: No - Cardiovascular System Hx Hypertension: Yes - Endocrine Hx End Stage Renal Disease: No Hx Non-Insulin Dependent Diabetes: Yes - Other Systems Hx Alcohol Use: Yes Hx Substance Use: Yes (cocaine)
--- NOTE | 2017-03-06 11:55 | Discharge Summary ---
Providers - Providers Date of Admission: 03/04/17 04:29 Date of discharge: 03/06/17 Attending physician: ROYA DOMINGO 03/04/17 13:05 Consult to Physician [CONS] Routine Consulting Provider: PORTER AVERY Reason For Exam: arf Place consult to:: Andrea PRICE Notified:: a service Phone number called:: [phone] Was contact made?: No Time called:: 13:17 Comment:: no answer at ans service and voice mailbox was full. put pt on list Primary care physician: LEGISLATIVE DIRECTOR Hospitalization Reason for admission: coffee ground emesis Condition: Stable Hospital course: Patient is a 47-year-old man who speaks Greek with a history of right eye enucleation since , alcohol abuse, tobacco dependency, cocaine abuse, type 2 diabetes mellitus and hypertension who presents with nausea and vomiting coffee-ground emesis. Hemoglobin was 16.3. Creatinine was 2.6, last creatinine 02/12/2017 was 0.6. He does take Motrin daily. He's also has been drinking been drinking alcohol. Last alcoholic drink was at 1 day prior to arrival. Patient was admitted for acute renal failure that was felt to be secondary to vasomotor nephropathy and ATN. Patient received IV fluid hydration with normalizing creatinine. Renal ultrasound was unremarkable and patient was seen by nephrology consultation. Patient was also seen by GI in consultation and underwent endoscopy which was essentially negative per GI. Patient also had hypokalemia which was replaced. Patient also received treatment with PPI. Disposition: - TO HOME OR SELFCARE Time spent for discharge: 31 Core Measure Documentation - Palliative Care Palliative Care/ Comfort Measures: Not Applicable - Core Measures Any of the following diagnoses?: none Exam - Constitutional Vitals: Temp Pulse Resp BP Pulse Ox 98 F 64 17 138/82 96 03/06/17 10:48 03/06/17 10:48 03/06/17 10:48 03/06/17 10:48 03/06/17 10:48 General appearance: Present: no acute distress, well-nourished - EENT Eyes: Present: PERRL ENT: hearing intact, clear oral mucosa - Neck Neck: Present: supple, normal ROM - Respiratory Respiratory effort: normal Respiratory: bilateral: CTA - Cardiovascular Heart Sounds: Present: S1 & S2. Absent: rub, click - Extremities Extremities: pulses symmetrical, No edema Peripheral Pulses: within normal limits - Abdominal General gastrointestinal: Present: soft, non-tender, non-distended, normal bowel sounds Male genitourinary: Present: normal - Integumentary Integumentary: Present: clear, warm, dry - Musculoskeletal Musculoskeletal: gait normal, strength equal bilaterally - Psychiatric Psychiatric: appropriate mood/affect, intact judgment & insight - Neurologic Neurologic: CNII-XII intact, moves all extremities Plan Activity: no restrictions Weight Bearing Status: Full Weight Bearing Follow up with: PRIMARY CAREMD [Primary Care Provider] - 3-5 Days AMBAR GUDINO MD [Staff Physician] - 7 Days Prescriptions: Pantoprazole [Protonix TAB] 40 mg PO QDAY #30 tablet
[2017-03-06] MEDS ORDERED: DIPRIVAN 10 MG/ML IV ONE (12:25)
[2017-03-06] MEDS ORDERED: WATER FOR IRRIG STERILE IR ONE (12:30)
--- NOTE | 2017-03-06 12:44 | Post Operative Note ---
Pre-op diagnosis: Hematemesis Post-op diagnosis: other (Normal) Findings: 1. Normal EGD Procedure: EGD Anesthesia: MAC Surgeon: GLORIA KAPADIA Estimated blood loss: none Pathology: none Condition: stable Disposition: floor (Okay to discharge to home. Abstain from EtOH.)
[2017-03-06 13:10] VITALS: BP 123/76
[2017-03-06] MEDS: DIFLUCAN/NS 100 MG/50 ML 100 MG/50 ML BAG IV SCH (13:31)
[2017-03-06] MEDS: PROTONIX PO SCH (13:31)
[2017-03-06] MEDS: THERAGRAN-M Tab PO SCH (13:31)
--- NOTE | 2017-03-06 13:52 | Post Anesthesia Evaluation ---
- Post Anesthesia Evaluation Patient Participated: Yes Airway Patent: Yes Stable Respiratory Function: Yes Temp > 96.8F: Yes Pain Manageable: Yes Adequeate Hydration: Yes Anesthesia Complications: No Block Receding Appropriately: Not Applicable
--- NOTE | 2017-03-06 18:38 | Operative Report ---
PROCEDURE: Upper endoscopy. PREOPERATIVE DIAGNOSIS: Hematemesis. POSTOPERATIVE DIAGNOSIS: Normal upper endoscopy. SEDATION: MAC by Anesthesia. HISTORY: The patient is a 47-year-old polysubstance abuser who came in with coffee-ground emesis. His lab show low platelet count of 88,000. He is doing well at present. PROCEDURE IN DETAIL: Indications, risks, and benefits were explained and consent was obtained. The patient was placed in left lateral decubitus position and sedated. Abazabi video upper endoscope was passed through the mouth and oropharynx into the descending duodenum. Scope was then gradually withdrawn with close inspection of the mucosa. FINDINGS: 1. Normal esophagus with sharp Z-line located at 40 cm from the incisors. 2. Normal-appearing gastric antrum, fundus, body, and cardia. 3. Normal-appearing duodenal bulb and duodenum. The patient tolerated the procedure well without immediate complications. IMPRESSION: Normal upper endoscopy with no evidence of bleeding source and no evidence of portal hypertension. PLAN: 1. Okay to discharge to home from GI perspective. 2. The patient needs to abstain from alcohol and follow up as an outpatient in 1 or 2 months. JOB# [id number] HRC/NTS
== END 2017-03-06 16:05 | disposition home or self-care (01) | DRG 683 ==
LOC: ED 21:22 → 4A 03-04 04:29
PROVIDERS: ADMIT Internal Medicine; ATTEND Hospitalist
PROC: 0DJ08ZZ Inspection of Upper Intestinal Tract, Via Natural or Artificial Opening Endoscopic (ICD-10-PCS; principal; 2017-03-06)
DX: N17.0 Acute kidney failure with tubular necrosis (principal); K92.2 Gastrointestinal hemorrhage, unspecified; B37.0 Candidal stomatitis; E87.1 Hypo-osmolality and hyponatremia; K92.0 Hematemesis; F10.10 Alcohol abuse, uncomplicated; Z88.2 Allergy status to sulfonamides; E11.9 Type 2 diabetes mellitus without complications; I10 Essential (primary) hypertension; Z82.49 Family history of ischemic heart disease and other diseases of the circulatory system; F17.210 Nicotine dependence, cigarettes, uncomplicated; F19.10 Other psychoactive substance abuse, uncomplicated; E87.6 Hypokalemia; Z71.6 Tobacco abuse counseling; R13.10 Dysphagia, unspecified; H54.41 Blindness, right eye, normal vision left eye; F14.10 Cocaine abuse, uncomplicated
CPT/HCPCS: 36415; 76770; 80048; 80053; 80074; 81001; 82043; 82140; 82570; 82962; 83735; 83970; 84100; 84156; 84300; 84484; 85025; 85027; 86850; 86900; 86901; 87040; 87086; 89050; 93005; 93010; 99406; C9113; J1200; J1450; J2704; J2765; J3411; J7030